=== PATIENT | female | born 1950 | race Caucasian/White ===

== ENCOUNTER 2017-01-02 03:18 | Outpatient (CLI) | payer MEDICARE | END 2017-01-02 03:19 | disposition short-term general hospital (02) | DX: R00.0 Tachycardia, unspecified (principal) | CPT/HCPCS: A0425; A0427; A0888 ==

== ENCOUNTER 2019-12-27 21:17 | Outpatient (CLI) | payer MEDICARE | END 2019-12-27 21:18 | disposition EMS.NT | LOC: EMS 21:17 | PROVIDERS: ATTEND Surgery | DX: R53.1 Weakness (principal); R05 Cough ==

== ENCOUNTER 2022-09-29 08:00 | Outpatient (CLI) | payer MEDICARE | END 2022-09-29 23:59 | disposition home or self-care (01) | LOC: LAB.N 08:00 | PROVIDERS: ATTEND Emergency Medicine | DX: S80.822A Blister (nonthermal), left lower leg, initial encounter (principal) | CPT/HCPCS: 87070; 87205 ==